=== PATIENT | female | born 1940 | race African-American/Black ===

== ENCOUNTER 2024-11-10 14:38 | Outpatient (CLI) | payer MEDICARE | END 2024-11-10 14:39 | disposition home or self-care (01) | LOC: BICMAMMO 14:38 | PROVIDERS: ATTEND Family Medicine | DX: M81.0 Age-related osteoporosis without current pathological fracture (principal); M85.851 Other specified disorders of bone density and structure, right thigh; M85.852 Other specified disorders of bone density and structure, left thigh; Z78.0 Asymptomatic menopausal state | CPT/HCPCS: 77080 ==